=== PATIENT | female | born 1960 | race Caucasian/White ===

== ENCOUNTER 2018-03-03 12:14 | Emergency (ER) | payer OTHER ==
--- NOTE | 2018-03-03 13:46 | RAD REPORT ---
EXAM DESCRIPTION: RAD - Chest Pa And Lat (2 Views) - 03/03/2018 1:31 pm CLINICAL HISTORY: COUGH Chest pain. COMPARISON: Chest Single View dated 02/20/2017 FINDINGS: The lungs are clear. The heart is normal in size. No displaced fractures. IMPRESSION: No acute or concerning finding suspected.
--- NOTE | 2018-03-03 14:09 | EDPHYS ---
Physician Documentation [facility] Name: Cheryle Chavez Age: 57 yrs Sex: Female : 1960 Arrival Date: 03/03/2018 Time: 12:18 Bed 23 Private MD: None, None ED Physician Viral Burton HPI: 03/03 13:54 This 57 yrs old Female presents to ER via Ambulatory with complaints of pm1 Productive Cough, Chest Congestion, Fever, No Voice. 13:54 The patient or guardian reports cough, flu symptoms, low-grade fever, hoarse voice. pm1 Onset: The symptoms/episode began/occurred 1 week(s) ago. Severity of symptoms: in the emergency department the symptoms are actually worse. Modifying factors: The symptoms are alleviated by nothing, the symptoms are aggravated by mold at work. Associated signs and symptoms: Pertinent positives: sore throat, diarrhea from weight loss oil she is taking, Pertinent negatives: nausea, vomiting. The patient has experienced similar episodes in the past, a few times. The patient has not recently seen a physician. 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 - Social history:: Smoking status: Patient/guardian denies using tobacco. - Ebola Screening: : No symptoms or risks identified at this time. ROS: 13:54 Eyes: Negative for injury, pain, redness, and discharge. pm1 13:54 Neck: Negative for injury, pain, and swelling, Cardiovascular: Negative for chest pain, palpitations, and edema. 13:54 Abdomen/GI: Negative for abdominal pain, nausea, vomiting, diarrhea, and constipation, Back: Negative for injury and pain, : Negative for injury, bleeding, discharge, and swelling, MS/Extremity: Negative for injury and deformity, Skin: Negative for injury, rash, and discoloration, Neuro: Negative for headache, weakness, numbness, tingling, and seizure. 13:54 Constitutional: Positive for body aches, fever, Negative for poor PO intake. 13:54 ENT: Positive for sinus congestion, sore throat, Post nasal drainage, Negative for drainage from ear(s), ear pain. 13:54 Respiratory: Positive for cough, Negative for shortness of breath, wheezing. Exam: 13:54 Constitutional: This is a well developed, well nourished patient who is awake, alert, pm1 and in no acute distress. Eyes: Pupils equal round and reactive to light, extra-ocular motions intact. Lids and lashes normal. Conjunctiva and sclera are non-icteric and not injected. Cornea within normal limits. Periorbital areas with no swelling, redness, or edema. ENT: Nares patent. No nasal discharge, no septal abnormalities noted. Tympanic membranes are normal and external auditory canals are clear. Oropharynx with no redness, swelling, or masses, exudates, or evidence of obstruction, uvula midline. Mucous membranes moist. Neck: Trachea midline, no thyromegaly or masses palpated, and no cervical lymphadenopathy. Supple, full range of motion without nuchal rigidity, or vertebral point tenderness. No Meningismus. Chest/axilla: Normal chest wall appearance and motion. Nontender with no deformity. No lesions are appreciated. Cardiovascular: Regular rate and rhythm with a normal S1 and S2. No gallops, murmurs, or rubs. Normal PMI, no JVD. No pulse deficits. Respiratory: Lungs have equal breath sounds bilaterally, clear to auscultation and percussion. No rales, rhonchi or wheezes noted. No increased work of breathing, no retractions or nasal flaring. Abdomen/GI: Soft, non-tender, with normal bowel sounds. No distension or tympany. No guarding or rebound. No evidence of tenderness throughout. 13:54 Back: No spinal tenderness. No costovertebral tenderness. Full range of motion. Skin: Warm, dry with normal turgor. Normal color with no rashes, no lesions, and no evidence of cellulitis. MS/ Extremity: Pulses equal, no cyanosis. Neurovascular intact. Full, normal range of motion. 13:54 Head/face: Sinus tenderness, is located over the right frontal sinus and left frontal sinus. 13:54 Neuro: Orientation: is normal, Motor: moves all fours. Vital Signs: 12:21 BP 116 / 81; Pulse 87; Resp 16; Temp 98.0; Pulse Ox 99% on R/A; Weight 86.18 kg; Height la1 5 ft. 9 in. (175.26 cm); 14:31 BP 114 / 82; Pulse 88; Resp 16; Pulse Ox 99% on R/A; kr2 12:21 Body Mass Index 28.06 (86.18 kg, 175.26 cm) la1 MDM: 13:04 Patient medically screened. pm1 14:08 Data reviewed: vital signs. Data interpreted: Pulse oximetry: on room air is 99 %. pm1 Interpretation: normal. Counseling: I had a detailed discussion with the patient and/or guardian regarding: the historical points, exam findings, and any diagnostic results supporting the discharge/admit diagnosis, lab results, radiology results, the need for outpatient follow up, to return to the emergency department if symptoms worsen or persist or if there are any questions or concerns that arise at home. 03/03 13:16 Order name: Flu; Complete Time: 17:02 pm1 03/03 13:16 Order name: Strep; Complete Time: 17:02 pm1 03/03 13:16 Order name: Chest Pa And Lat (2 Views) XRAY; Complete Time: 13:54 pm1 03/03 13:55 Order name: Throat Culture EDNE Administered Medications: No medications were administered Disposition: 03/04 07:06 Co-signature as Attending Physician, Viral Burton MD I agree with the assessment and izzy plan of care. Disposition: 03/03/18 14:09 Discharged to Home. Impression: Acute sinusitis. - Condition is Stable. - Discharge Instructions: Sinusitis, Adult. - Prescriptions for Amoxicillin 500 mg Oral Capsule - take 1 capsule by ORAL route every 8 hours for 10 days; 30 tablet. Zyrtec- D 5-120 mg Oral Tablet Sustained Release 12 hr - take 1 tablet by ORAL route every 12 hours As needed; 20 tablet. - Medication Reconciliation Form, Thank You Letter, Antibiotic Education, Prescription Opioid Use form. - Follow up: Emergency Department; When: As needed; Reason: Worsening of condition. Follow up: Private Physician; When: 2 - 3 days; Reason: Recheck today's complaints, Continuance of care, Re-evaluation by your physician. - Problem is new. - Symptoms have improved. Signatures: Dispatcher [employer] EDViral Lopez MD MD izzy Attema, [place], RN RN la1 Fernando Renee, WASH MILL OPERATOR WASH MILL OPERATOR pm1 Mildred Kruse, RN RN kr2 Corrections: (The following items were deleted from the chart) 03/03 14:23 14:09 03/03/2018 14:09 Discharged to Home. Impression: Bronchitis, not specified as pm1 acute or chronic. Condition is Stable. Forms are Medication Reconciliation Form, Thank You Letter, Antibiotic Education, Prescription Opioid Use. Follow up: Emergency Department; When: As needed; Reason: Worsening of condition. Follow up: Private Physician; When: 2 - 3 days; Reason: Recheck today's complaints, Continuance of care, Re-evaluation by your physician. Problem is new. Symptoms have improved. pm1 14:35 13:18 Urine Dipstick-Ancillary ordered. pm1 kr2 14:35 13:18 Urine Test ordered. pm1 kr2 14:36 14:23 03/03/2018 14:09 Discharged to Home. Impression: Acute sinusitis. Condition is kr2 Stable. Discharge Instructions: Acute Bronchitis, Adult. Prescriptions for Zithromax Z-Stanley 250 mg Oral Tablet - take 1 tablet by ORAL route as directed for 5 days Day 1 - take two (2) tablets one time. Day 2, 3, 4 , 5 take one (1) tablet once daily.; 6 tablet. and Forms are Medication Reconciliation Form, Thank You Letter, Antibiotic Education, Prescription Opioid Use. Follow up: Emergency Department; When: As needed; Reason: Worsening of condition. Follow up: Private Physician; When: 2 - 3 days; Reason: Recheck today's complaints, Continuance of care, Re-evaluation by your physician. Problem is new. Symptoms have improved. pm1
--- NOTE | 2018-03-03 14:09 | ER ---
Nurse's Notes [facility] Name: Cheryle Chavez Age: 57 yrs Sex: Female : 1960 Arrival Date: 03/03/2018 Time: 12:18 Bed 23 Private MD: None, None Diagnosis: Acute sinusitis Presentation: 03/03 12:20 Presenting complaint: Patient states: Productive cough for 3 days and I am losing my la1 voice. Transition of care: patient was not received from another setting of care. Onset of symptoms was March 03, 2018. Risk Assessment: Do you want to hurt yourself or someone else? Patient reports no desire to harm self or others. Initial Sepsis Screen: Does the patient meet any 2 criteria? No. Patient's initial sepsis screen is negative. Does the patient have a suspected source of infection? No. Patient's initial sepsis screen is negative. Care prior to arrival: None. 12:20 Method Of Arrival: Ambulatory la1 12:20 Acuity: SILVESTRE 3 la1 Triage Assessment: 13:49 General: Appears in no apparent distress. Respiratory: Onset: The symptoms/episode kr2 began/occurred gradually, the patient has mild shortness of breath. Respiratory: Breath sounds are clear bilaterally. Respiratory: Airway is patent Respiratory effort is even, unlabored, Respiratory pattern is regular, symmetrical. Respiratory: Reports cough that is productive, Onset: The symptoms/episode began/occurred. 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 - Social history:: Smoking status: Patient/guardian denies using tobacco. - Ebola Screening: : No symptoms or risks identified at this time. Screenin:05 Abuse screen: Denies threats or abuse. Denies injuries from another. Nutritional kr2 screening: No deficits noted. Tuberculosis screening: No symptoms or risk factors identified. Fall Risk None identified. Assessment: 13:05 General: Appears in no apparent distress. uncomfortable, well groomed, well developed, kr2 well nourished, Behavior is calm, cooperative, appropriate for age. Pain: Complains of pain in head, face, throat Pain does not radiate. Pain currently is 3 out of 10 on a pain scale. Quality of pain is described as aching, tender, Is continuous, Alleviated by nothing. Aggravated by eating, drinking. Neuro: Level of Consciousness is awake, alert, obeys commands, Oriented to person, place, time, situation, Appropriate for age. Cardiovascular: Rhythm is regular. Respiratory: Reports cough that is productive, persistent Airway is patent Respiratory effort is even, unlabored, Breath sounds are clear bilaterally. GI: Abdomen is flat, non-distended. EENT: Oral mucosa is moist. Throat is pink. Derm: Skin is intact, is healthy with good turgor, Skin is pink, warm \T\ dry. 14:31 Reassessment: Patient appears in no apparent distress at this time. Patient and/or kr2 family updated on plan of care and expected duration. Pain level reassessed. Patient is alert, oriented x 3, equal unlabored respirations, skin warm/dry/pink. Vital Signs: 12:21 BP 116 / 81; Pulse 87; Resp 16; Temp 98.0; Pulse Ox 99% on R/A; Weight 86.18 kg; Height la1 5 ft. 9 in. (175.26 cm); 14:31 BP 114 / 82; Pulse 88; Resp 16; Pulse Ox 99% on R/A; kr2 12:21 Body Mass Index 28.06 (86.18 kg, 175.26 cm) la1 ED Course: 12:18 Patient arrived in ED. sb2 12:18 None, None is Private Physician. sb2 12:21 Triage completed. la1 12:21 Arm band placed on right wrist. la1 13:04 Fernando Renee NP is PHCP. pm1 13:04 Viral Burton MD is Attending Physician. pm1 13:05 Mildred Kruse, GET is Primary Nurse. kr2 13:05 Patient has correct armband on for positive identification. Bed in low position. Call kr2 light in reach. Side rails up X 1. Pulse ox on. NIBP on. Door closed. Warm blanket given. Head of bed elevated. 13:28 Chest Pa And Lat (2 Views) XRAY In Process Unspecified. EDMS 14:35 No provider procedures requiring assistance completed. Patient did not have IV access kr2 during this emergency room visit. Administered Medications: No medications were administered Outcome: 14:09 Discharge ordered by MD. pm1 14:35 Discharged to home ambulatory. kr2 14:35 Condition: good 14:35 Discharge instructions given to patient, family, Instructed on discharge instructions, follow up and referral plans. medication usage, Demonstrated understanding of instructions, follow-up care, medications, Prescriptions given X 1. 14:36 Patient left the ED. kr2 Signatures: Dispatcher [employer] EDMS Israel Gates RN RN la1 Fernando Renee, TRACI WELLNESS SPECIALIST pm1 Mildred Kruse RN RN kr2 Thea Araiza sb2
--- OUTSIDE RECORDS SUMMARY | 2018-03-04 12:09 | XMS REPORT | Clinical Summary ---
:1960 Author Organization [facility] Address [address] [place] [address] Care Team Providers Name Role Phone Dana Henderson MD Primary Care Provider Allergies No Known Allergies Current Medications Prescription Sig. Disp. Refills Start Date End Date Status LEVOXYL 50 mcg tablet Take 50 mcg by 2 07/21/2016 Active mouth once daily. ferrous sulfate 325 (65 Take 1 tablet by 3 07/05/2016 Active FE) MG tablet mouth 2 (two) times a day. QSYMIA 7.5-46 mg capsule, Take 1 capsule by 4 06/26/2016 Active ER multiphase 24 hr mouth every morning. docusate sodium (COLACE) Take 100 mg by 3 07/05/2016 Active 100 MG capsule mouth 2 (two) times a day. Active Problems Not on file Family History Relation Name Status Comments Father Mother Other siblings Alive Other sibling Social History Tobacco Use Types Packs/Day Years Used Date Never Smoker Smokeless Tobacco: Never Used Alcohol Use Drinks/Week oz/Week Comments No Sex Assigned at Date Recorded Not on file Last Filed Vital Signs Not on file Plan of Treatment Health Maintenance Due Date Last Done Comments CERVICAL CANCER SCREENING 1983 BREAST CANCER SCREENING 2012 COLON CANCER SCREENING 2012 SHINGRIX VACCINE (#1) 2012 INFLUENZA VACCINE 01/09/2018 Results Not on fileafter 03/03/2017 Insurance Payer Benefit Plan / Group Subscriber ID Type Phone Address [employer] C[employer] OPEN ACCESS/NETWORK xxxxxxxxxxx HMO Work: [address] [facility] [phone] [place] [id number] [address] [place], [place] Home: [id number]
--- OUTSIDE RECORDS SUMMARY | 2018-03-04 12:10 | XMS REPORT | Continuity of Care Document ---
:1960 Author Organization Interface Problems Problem Status Onset Classification Date Comments Source Date Reported LABS-FOLLOW UP Active 05/10/[address] ANEMIA Active 03/31/[address] H/O: anemia - Active 03/21/20 Problem 12/08/2017 Data migrated [facility] iron 13 from Medical deficient<sup>3, [facility] [place], 4</sup> 11/11/14. Medical Group H/O: anemia - Active 03/21/20 Problem 10/16/2016 Data migrated [facility] iron 13 from Medical deficient<sup>3, [facility] [place], 4</sup> 11/11/14. [facility] [place] Fatigue<sup>1, Active 01/18/20 Problem 12/08/2017 Data migrated [facility] 2</sup> 13 from [facility], 11/11/14. Medical Group Fatigue<sup>1, Active 01/18/20 Problem 10/16/2016 Data migrated [facility] 2</sup> 13 from [facility] [place], 11/11/14. [facility] [place] Other Active Problem 12/08/2017 Medical constipation Group Chronic Active Problem 12/08/2017 Medical thyroiditis Group, [facility] [place] Low serum Active Problem 12/08/2017 Medical vitamin D Group Body mass index Active Problem 12/08/2017 Medical 32.0-32.9, Group adult(<span ID="[id number] ">Confirmed</spa n>) History of Active Problem 12/08/2017 Medical gastric bypass Group Hypothyroid Active Problem 12/08/2017 [facility], Medical Group Leukopenia Active Problem 12/08/2017 [facility] Group Obesity<sup>5, Active Problem 12/08/2017 Data migrated [facility] 6</sup> from [facility] [place], 11/11/14. Medical Group Hypothyroid Active Problem 10/16/2016 [facility] JOSE Ernst Leukopenia Active Problem 10/16/2016 [facility], JOSE Ernst Obesity<sup>5, Active Problem 10/16/2016 Data migrated [facility] 6</sup> from [facility], 11/11/14. JOSE Ernst [place]'s node Active Problem 12/08/2017 Medical Group Medications Medication Details Route Status Patient Ordering Order Source Instructions Provider Date plecanatide 3 MG 3 mg=1 tab, Active Oral Tablet PO, Daily, # 018 Medical [Trulance] 1 box, 0 Group Refill(s), given to patient Levothyroxine See Active Sodium 0.05 MG Instructions 018 Medical Oral Tablet , TAKE 1 Group [Levoxyl] TABLET BY MOUTH EVERY DAY, # 90 tab, 1 Refill(s), Pharmacy: [facility]/pharmacy #[id number] Ascorbic Acid 1 tab, PO, Active 120 MG / Daily, # 30 018 Medical Docusate Sodium tab, 5 Group 50 MG / Folic Refill(s), Acid 1 MG / Iron Pharmacy: Carbonyl 90 MG / [facility]/pharmacy Vitamin B 12 #6704 0.012 MG Oral Tablet [Ferralet 90] 24 HR 1 cap, PO, Active Phentermine 11.3 QAM, # 30 018 Medical MG / topiramate cap, 3 Group 69 MG Extended Refill(s) Release Capsule [Qsymia 11.25/69] 24 HR 1 cap, PO, Active Phentermine 11.3 QAM, # 30 018 Medical MG / topiramate cap, 3 Group 69 MG Extended Refill(s) Release Capsule [Qsymia 11.25/69] 24 HR 1 cap, PO, Active Phentermine 11.3 QAM, # 30 018 Medical MG / topiramate cap, 3 Group 69 MG Extended Refill(s) Release Capsule [Qsymia 11.25/69] plecanatide 3 MG 3 mg=1 tab, Active Oral Tablet PO, Daily, # 018 Medical [Trulance] 14 tab, 0 Group Refill(s), given to patient Ascorbic Acid 1 tab, PO, Active 120 MG / Daily, # 30 018 Medical Docusate Sodium tab, 4 Group 50 MG / Folic Refill(s), Acid 1 MG / Iron [facility] 90 [facility] 0.012 MG Oral Tablet [Ferralet 90] plecanatide 3 MG 3 mg=1 tab, Active Oral Tablet PO, Daily, # 018 Medical [Trulance] 30 tab, 5 Group Refill(s), [id number] Docusate Sodium 100 mg=1 Active [place] 100 MG Oral cap, PO, 017 Medical Capsule [Colace] BID, # 60 Center cap, 3 Refill(s), [id number] ferrous sulfate 325 mg=1 Active [facility] 325 MG Oral tab, PO, 017 Medical Tablet BID, # 90 Center tab, 3 Refill(s), Pharmacy: [facility] #[id number] Tylenol 650 mg, 2 Inactive [facility] tab, Route: 017 Medical PO, Drug Center form: TAB, On Adm, Start date: 06/14/16 7:00:00 ACADEMIC ADVISING DIRECTOR, Duration: 1 doses or times, Stop date: 06/14/16 21:00:00 CSTNotes: Do not exceed 4 gm/day. (Same as: Tylenol) ferric 750 mg, 15 Inactive [facility] carboxymaltose + mL, Route: 017 Medical sodium chloride IVPB, Drug Center 0.9% INJ 250 mL form: SOLN, On Adm, Start date: 06/14/16 7:00:00 ACADEMIC ADVISING DIRECTOR, Duration: 1 doses or times, Stop date: 06/14/16 21:00:00 CSTNotes: (Same as: Injectafer) Non-formular y Administer as slow I.V. push (undiluted) at a rate of 100 mg/minute or by I.V. infusion (diluted to 2 mg/mL) over at least 15 minutes Benadryl 25 mg, 1 Inactive [facility] cap, Route: 017 Medical PO, Drug Center form: CAP, On Adm, Start date: 06/14/16 7:00:00 ACADEMIC ADVISING DIRECTOR, Duration: 1 doses or times, Stop date: 06/14/16 21:00:00 CSTNotes: (Same as: Benadryl) ferric 750 mg, 15 Inactive [facility] carboxymaltose + mL, Route: [facility] Medical sodium chloride IVP, Drug Center 0.9% INJ 250 mL form: SOLN, On Adm, Start date: 05/31/16 7:00:00 ACADEMIC ADVISING DIRECTOR, Duration: 1 doses or times, Stop date: 05/31/16 21:00:00 CSTNotes: (Same as: Injectafer) Non-formular y Administer as slow I.V. push (undiluted) at a rate of 100 mg/minute or by I.V. infusion (diluted to 2 mg/mL) over at least 15 minutes Benadryl 25 mg, 1 Inactive [facility] cap, Route: 016 Medical PO, Drug Center form: CAP, On Adm, Start date: 05/31/16 7:00:00 ACADEMIC ADVISING DIRECTOR, Duration: 1 doses or times, Stop date: 05/31/16 21:00:00 CSTNotes: (Same as: Benadryl) Tylenol 650 mg, 2 Inactive [facility] tab, Route: 016 Medical PO, Drug Center form: TAB, On Adm, Start date: 05/31/16 7:00:00 ACADEMIC ADVISING DIRECTOR, Duration: 1 doses or times, Stop date: 05/31/16 21:00:00 CSTNotes: Do not exceed 4 gm/day. (Same as: Tylenol) Allergies, Adverse Reactions, Alerts Substance Category Reaction Severity Reaction Status Date Comments Source type Reported NKDA Assertion Drug Active allergy Medical Group Immunizations Immunization Date Given Site Status Last Updated Comments Source Results Order Results Value Reference Date Interpretation Comments Source Name Range Ext Ext Patient Name: IZZY CHIANG CLARKE 10/13 - [facility] Lower Lower /2016 - [place] Venous Venous : 1960; Age: 56 years y/o Female Doppler Doppler Unilat Unilat MR: [id number] Read by: Elias Sanches MD [facility] Dictated Date/time: 10/13/16 16:37 Electronically Signed by: Elias Sanches MD 10/13/16 16:38 FINAL REPORT Study: Ext Lower Venous Doppler Unilat 10/13/2016 3:21 PM CDT Ordering Physician: Clinical Indication: Left foot swelling Comparison: None Left lower extremity venous Doppler ultrasound exam demonstrates normal flow and compressibility of common femoral, superficial femoral, and popliteal venous segments. Normal distal augmentation. IMPRESSION: No evidence for left lower extremity deep vein thrombosis. SL: [id number] Vital Signs Vital Sign Value Date Comments Source BMI Calculated 34.13 11/19/2017 Medical Group Height 172.72 cm 11/19/2017 Medical [facility] Weight 101.818 11/19/2017 Medical Group Heart Rate 78 11/19/2017 [facility] Group Systolic (mm Hg) 117 11/19/2017 Medical Group Diastolic (mm Hg) 80 11/19/2017 [facility] BMI Calculated 33.22 06/19/2017 Medical [facility] Height 172.72 cm 06/19/2017 Medical [facility] Weight 99.091 06/19/2017 Medical Group Systolic (mm Hg) 117 06/19/2017 Medical Group Diastolic (mm Hg) 82 06/19/2017 Medical [facility] Heart Rate 91 06/19/2017 [facility] BMI Calculated 33.62 07/05/2016 [facility] Height 172 cm 07/05/2016 [facility] Weight 99.455 07/05/2016 [facility] Temperature Oral (F) 97.8 F 07/05/2016 [facility] Respitory Rate 16 07/05/2016 [facility] Heart Rate 66 07/05/2016 [facility] Systolic (mm Hg) 114 07/05/2016 [facility] Diastolic (mm Hg) 79 07/05/2016 [facility] Systolic (mm Hg) 129 06/14/2016 [facility] Diastolic (mm Hg) 78 06/14/2016 [facility] Heart Rate 97 06/14/2016 [facility] Respitory Rate 18 06/14/2016 [facility] Temperature Oral (F) 98.1 F 06/14/2016 [facility] Weight 101.182 06/14/2016 [facility] Height 172 cm 06/14/2016 [facility] BMI Calculated 34.2 06/14/2016 [facility] Weight 101.182 05/31/2016 [facility] BMI Calculated 33.92 05/31/2016 [facility] Height 172.72 cm 05/31/2016 [facility] Temperature Oral (F) 98.9 F 05/31/2016 [facility] Respitory Rate 16 05/31/2016 [facility] Heart Rate 89 05/31/2016 [facility] Systolic (mm Hg) 126 05/31/2016 [facility] Diastolic (mm Hg) 74 05/31/2016 [facility] Height 171 cm 05/10/2016 [facility] BMI Calculated 34.7 05/10/2016 [facility] Weight 101.455 05/10/2016 [facility] Temperature Oral (F) 98.2 F 05/10/2016 [facility] Respitory Rate 18 05/10/2016 [facility] Heart Rate 77 05/10/2016 [facility] Systolic (mm Hg) 113 05/10/2016 [facility] Diastolic (mm Hg) 76 05/10/2016 [facility] Encounters Location Location Encounter Encounter Reason Attending ADM DC Status Source Details Type Number For Provider Date Date Visit Outpatient [id number] 01/18 [facility] Outpatient [id number] 09/13 [facility] Outpatient [id number] 03/22 [facility] [id number] Fernanda 05/10 06/09 [facility] /[address] [facility] Rec[facility]ring [id number] Fernanda 06/14 07/14 [facility] /2016 Medical Oncology Center [facility] Outpatient [id number] 10/03 [facility] Outpt Diag [id number] 10/13 [facility] Shi /2016 [place] [facility] [place] [id number] 03/19 [facility] Phone [id number] 06/13 06/15 Internal Message /2017 Medical Medicine Group [facility] Outpatient [id number] 06/19 [facility] [id number] 06/19 [facility] /2017 [facility] [id number] 07/30 08/01 Internal Message /2017 Medical Medicine Group [facility] Phone [phone] 08/02 08/04 Internal Message /2017 [facility] Medicine Group [facility] Phone [id number] 08/02 08/04 Internal Message /2017 [facility] [phone] 11/13 11/15 Internal Message /2017 Medical Medicine Group [facility] Outpatient [id number] 11/19 [facility] Outpatient [id number] Dana11/19 Internal Shiver /2017 [facility] [phone] 12/04 12/06 Internal Message /2017 Medical Medicine Group [facility] Outpatient [id number] 05/30 [facility] Procedures Procedure Code Date Perfomer Comments Source Cholecystectomy [id number] [facility] Gastric bypass [id number] [facility] Hysterotomy [id number] [facility] Operation [id number] [facility] Cholecystectomy [id number] [facility] Group Gastric bypass [id number] [facility] Hysterotomy [id number] [facility] Operation [id number] [facility] Cholecystectomy [id number] [facility] [place] Gastric bypass [id number] [facility] [place] Hysterotomy [id number] [facility] [place] Operation [id number] [facility] [place]
== END 2018-03-03 14:36 | disposition home or self-care (01) ==
LOC: ER 12:14
DX: J01.90 Acute sinusitis, unspecified (principal); Z88.7 Allergy status to serum and vaccine
CPT/HCPCS: 71046; 87070; 87081; 87804; 99283